=== PATIENT | female | born 1990 | race Two or more races ===

== ENCOUNTER 2016-05-22 16:33 | Emergency (ER) | payer MEDICAID, OTHER ==
[~2016-05-22] VITALS: Ht 175.3 cm; Wt 125.2 kg
[2016-05-22 19:16] VITALS: BP 126/69
[2016-05-22] MEDS ORDERED: ONDANSETRON ODT 4 MG TAB PO ONE (19:30)
[2016-05-22] MEDS ORDERED: IBUPROFEN 600 MG TAB PO ONE (19:30)
== END 2016-05-22 19:54 | disposition home or self-care (01) ==
LOC: ER 16:53
DX: G43.909 Migraine, unspecified, not intractable, without status migrainosus (principal)
CPT/HCPCS: 70450; 99284; Q0162